=== PATIENT | male | born 1990 | race Caucasian/White ===

== ENCOUNTER 2016-06-17 09:08 | Outpatient (CLI) | payer OTHER | END 2016-06-17 09:09 | disposition home or self-care (01) | DX: R06.83 Snoring (principal) ==

== ENCOUNTER 2017-02-28 01:54 | Emergency (ER) | payer OTHER ==
[2017-02-28] MEDS ORDERED: ONDANSETRON 4 MG/2 ML VIAL IVP STA (02:15)
[2017-02-28] MEDS ORDERED: SODIUM CHLORIDE 0.9% 1,000 ML IV ONE (02:15)
[2017-02-28] MEDS ORDERED: ONDANSETRON 4 MG/2 ML VIAL ONE (02:23)
--- NOTE | 2017-02-28 03:08 | ED Physician Documentation ---
PD HPI NVD - Stated complaint Stated Complaint: DIARRHEA - Chief complaint Chief Complaint: Abd Pain - History of Present Illness Timing - onset: How many days ago (4) Timing - details: Gradual onset, Still present Associated symptoms: Fever, Abdominal pain, Hematochezia Contributing factors: Travel Similar symptoms before: No diagnosis Recently seen: Not recently seen - Additonal information Additional information: Patient is a 26 year old male with no significant past medical history who is presenting to the emergency department for bloody diarrhea. patient is in the and just came back from [place]. patient states that he has had diarrhea for the last 4-5 days and today it started to get bloody so he came in for evaluation. Review of Systems Constitutional: reports: Fever, Chills Eyes: denies: Decreased vision, Photophobia Ears: reports: Reviewed and negative Nose: reports: Reviewed and negative Throat: reports: Reviewed and negative Cardiac: reports: Reviewed and negative Respiratory: reports: Reviewed and negative GI: reports: Abdominal Pain, Nausea, Diarrhea, Bloody / black stool. denies: Vomiting, Constipation : denies: Hematuria Musculoskeletal: reports: Reviewed and negative Neurologic: denies: Near syncope, Syncope, LOC Immunocompromised: denies: Immunocompromised PD PAST MEDICAL HISTORY - Past Medical History Cardiovascular: None Respiratory: None Endocrine/Autoimmune: None GI: None : None HEENT: Chronic vision loss, Other Psych: None Musculoskeletal: Other Derm: None - Past Surgical History Past Surgical History: No - Present Medications Home Medications: Ambulatory Orders Medication Instructions Recorded Confirmed Zolpidem [Ambien] 10 mg PO HS 10/21/15 10/21/15 Ciprofloxacin HCl [Cipro] 500 mg PO BID #10 tablet 02/28/17 Ondansetron Odt [Zofran] 4 mg TL Q6H PRN #14 tablet 02/28/17 - Allergies Allergies/Adverse Reactions: Allergies Allergy/AdvReac Type Severity Reaction Status Date / Time No Known Drug Allergies Allergy Verified 02/28/17 02:03 - Social History Does the pt smoke?: No Smoking Status: Never smoker Does the pt drink ETOH?: Yes Does the pt have substance abuse?: No - Immunizations Immunizations are current?: Yes - POLST Patient has POLST: No PD ED PE NORMAL - Vitals Vital signs reviewed: Yes - General General: Alert and oriented X 3, Well developed/nourished - HEENT HEENT: Atraumatic, PERRL, Pharynx benign - Neck Neck: Supple, no meningeal sign - Cardiac Cardiac: RRR, No murmur - Respiratory Respiratory: No respiratory distress, Clear bilaterally - Abdomen Abdomen: Soft - Derm Derm: Normal color, Warm and dry - Extremities Extremities: No deformity, Normal ROM s pain, No edema, No calf tenderness / cord - Neuro Neuro: Alert and oriented X 3, No motor deficit, No sensory deficit, Normal speech Eye Opening: Spontaneous Motor: Obeys Commands Verbal: Oriented GCS Score: 15 - Psych Psych: Normal mood PD ED PE EXPANDED - HEENT HEENT: Dry mucous membranes - Abdomen Abdomen: Hyperactive BS, Tender to palpation, Generalized/diffuse. No: Rebound , Guarding Results - Vitals Vitals: Vital Signs - 24 hr 02/28/17 02/28/17 01:59 03:23 Temperature 36.9 C 37 C Heart Rate 80 62 Respiratory 16 20 Rate Blood Pressure 126/66 119/67 O2 Saturation 100 100 Oxygen O2 Source Room air PD MEDICAL DECISION MAKING - ED course Complexity details: reviewed old records, reviewed results, re-evaluated patient , considered differential, d/w patient ED course: Patient was seen and examined at bedside. Patient was treated with zofran and IV fluids. Due to the combination of fevers, and hematochezia it was decided to start the patient on antibiotics. patient was able to tolerate PO without difficulty and was stable for discharge with outpatient follow up. Departure - Departure Disposition: 01 Home, Self Care Clinical Impression: Infectious diarrhea in adult patient Condition: Good Instructions: ED Gastroenteritis Irineo Follow-Up: primary,care provider [Other] - Within 3 Days Prescriptions: Ciprofloxacin HCl [Cipro] 500 mg PO BID #10 tablet Ondansetron Odt [Zofran] 4 mg TL Q6H PRN #14 tablet PRN Reason: Nausea / Vomiting Comments: Your symptoms today are likely being caused by infectious diarrhea. You will start antibiotics and take them for the next five days. You should take the zofran for nausea and make sure you stay well hydrated with water and electrolyte solution (gatorade/pedialyte). You should follow up with the base doctor if the symptoms persist. You may return to the emergency department at any time for new, worsening or uncontrollable symptoms. Discharge Date/Time: 02/28/17 03:26
[2017-02-28 03:23] VITALS: BP 119/67
== END 2017-02-28 03:26 | disposition home or self-care (01) ==
LOC: ED 01:54
DX: A09 Infectious gastroenteritis and colitis, unspecified (principal)
CPT/HCPCS: 96361; 96374; 99283